=== PATIENT | male | born 1950 | race Caucasian/White ===

== ENCOUNTER 2017-06-08 08:20 | Emergency (ER) | payer MEDICAID, MEDICARE, OTHER ==
[2017-06-08 08:38] VITALS: BMI 34.4
[2017-06-08] MEDS ORDERED: Morphine 5 MG/ML SYRINGE IM STA (08:38)
--- NOTE | 2017-06-08 08:54 | ED PDOC ---
Arrival/HPI - General Chief Complaint: Trauma Time Seen by Provider: 06/08/17 08:38 Historian: Patient - History of Present Illness Narrative History of Present Illness (Text): 06/08/17 08:51 A 67 year old male, whose past medical history includes diabetes, neuropathy, CAD, CABG, and hypothyroidism, presents to the emergency department with a complaint of right arm pain s/p a mechanical fall. The patient states that he tripped and fell at home. He reports questionable LOC and right elbow pain. The patient denies fevers, chills, confusion, dizziness, chest pain, shortness of breath, dyspnea on exertion, cough, abdominal pain, nausea, vomiting, diarrhea, back pain, neck pain, urinary/bowel changes, or any other complaint. PMD: Dr. Chiki Torres Time/Duration: Prior to Arrival Symptom Onset: Sudden Symptom Course: Unchanged Activities at Onset: Rest, Light Context: Home Past Medical History - Provider Review Nursing Documentation Reviewed: Yes - Infectious Disease Hx of Infectious Diseases: None - Cardiac Hx Hypertension: Yes Other/Comment: Bypass - Neurological Other/Comment: Neuropathy - Endocrine/Metabolic Hx Diabetes Mellitus Type 1: Yes Hx Hypothyroidism: Yes - Psychiatric Hx Substance Use: No - Surgical History Other/Comment: Bypass surgery. Sinus surgery. Unkown name lower left quad surgery per patient. Family/Social History - Physician Review Nursing Documentation Reviewed: Yes Family/Social History: No Known Family HX Smoking Status: Never Smoked Hx Alcohol Use: No Hx Substance Use: No Allergies/Home Meds Allergies/Adverse Reactions: Allergies No Known Allergies Allergy (Verified 06/08/17 08:30) Review of Systems - Physician Review All systems were reviewed & negative as marked: Yes - Review of Systems Cardiovascular: absent: Chest Pain Neurological: absent: Dizziness Physical Exam - Physical Exam Narrative Physical Exam (Text): 06/08/17 08:54 Constitutional: No acute distress. Head: Normocephalic. Mild abrasion to right eyebrow. Eyes: PERRL. EOMI. ENT: Moist mucous membranes. Neck: Supple. No midline tenderness. Cardiovascular: Regular rate. Chest: No tenderness. Respiratory: Clear to auscultation bilaterally. GI: Soft. Nontender. Nondistended. Pelvis: Stable. Back: No CVA tenderness. No midline tenderness. Musculoskeletal: No tenderness or swelling of extremities x 3. Radial pulses 2 + bilaterally. Full ROM x3. Full ROM R wrist. No R snuffbox tenderness. Limited ROM of R elbow secondary to pain. Skin: No rash. Neurologic: Alert, no focal deficit. Vital Signs Reviewed: Yes Vital Signs Temp Pulse Resp BP Pulse Ox 06/08/17 13:54 98.4 F 61 18 150/76 97 06/08/17 09:52 59 L 16 133/63 97 06/08/17 08:20 97.2 F L 66 18 169/84 H 98 Pulse: Regular Respiratory Rate: Normal Appearance: Positive for: Well-Appearing, Non-Toxic Pain Distress: Moderate Mental Status: Positive for: Alert and Oriented X 3 Medical Decision Making ED Course and Treatment: 06/08/17 08:57 Impression: A 67 year old male presents to the emergency department with right elbow pain s/ p a fall prior to arrival. Plan: -- Rigth Elbow/ Humerus -- Morphine -- Reassess and disposition Progress Notes: CT HEAD WITHOUT CONTRAST Dictator : Prabhjot Kapadia MD Report Date : 06/08/2017 09:19:31 IMPRESSION: Normal CT of the Head. XR shows elbow fracture, displaced likely medial epicondyle, no dislocation of elbow joint. Patient with Medicare card, states he used to see Dr. Torres in the past and plans to see him in future. Called Dr. Torres who recommends Dr. Stevenson for Ortho. Discussed XR with Dr. Stevenson, who states that if surgery is needed , will not be performed today. Given no dislocation, recommends splint and follow up in office. Splint placed, sling, follow up Ortho. Patient with sensation and movement intact in hand and skin warm and cap refill normal. Instructed to return for numbness, weakness, or skin changes. - RAD Interpretation Radiology Orders: 06/08/17 08:39 HEAD W/O CONTRAST [CT] Stat ELBOW RIGHT 3 VIEWS ROUTINE [RAD] Stat HUMERUS RIGHT [RAD] Stat - Medication Orders Current Medication Orders: Discontinued Medications Morphine Sulfate (Morphine) 6 mg IM STAT STA Stop: 06/08/17 08:39 Last Admin: 06/08/17 08:55 Dose: 6 mg IM Administration Charges Document 06/08/17 08:55 RG (Rec: 06/08/17 08:55 RG [facility] [id number]) Injection Site MAR Injection Site Left Deltoid Charges for Administration # of IM Administrations 2 - Scribe Statement The provider has reviewed the documentation as recorded by the Nichol Handy Provider Nichol Attestation: All medical record entries made by the Scribe were at my direction and personally dictated by me. I have reviewed the chart and agree that the record accurately reflects my personal performance of the history, physical exam, medical decision making, and the department course for this patient. I have also personally directed, reviewed, and agree with the discharge instructions and disposition. Disposition/Present on Arrival - Present on Arrival Any Indicators Present on Arrival: No History of DVT/PE: No History of Uncontrolled Diabetes: No Urinary Catheter: No History of Decub. Ulcer: No History Surgical Site Infection Following: None - Disposition Have Diagnosis and Disposition been Completed?: Yes Diagnosis: Elbow fracture Disposition: HOME/ ROUTINE Disposition Time: 13:35 Patient Plan: Discharge Condition: STABLE Discharge Instructions (ExitCare): Elbow Fracture in Adults (ED) Prescriptions: oxyCODONE/Acetaminophen [Percocet 5/325 mg Tab] 1 tab PO Q6 #12 tab Referrals: Emir Torres MD [Primary Care Provider] - Follow up with primary Han Botello MD [Staff Provider] - Follow up with primary Forms: [employer] ([place])
--- NOTE | 2017-06-08 09:21 | CT ---
PROCEDURE: CT HEAD WITHOUT CONTRAST. HISTORY: fall COMPARISON: None available. TECHNIQUE: Axial computed tomography images were obtained through the head/brain without intravenous contrast. Radiation dose: Total exam DLP = 792 mGy-cm. This CT exam was performed using one or more of the following dose reduction techniques: Automated exposure control, adjustment of the mA and/or kV according to patient size, and/or use of iterative reconstruction technique. FINDINGS: HEMORRHAGE: No intracranial hemorrhage. BRAIN: No mass effect or edema. No atrophy or chronic microvascular ischemic changes. VENTRICLES: Unremarkable. No hydrocephalus. CALVARIUM: Unremarkable. PARANASAL SINUSES: Unremarkable as visualized. No significant inflammatory changes. MASTOID AIR CELLS: Unremarkable as visualized. No inflammatory changes. OTHER FINDINGS: None. IMPRESSION: Normal CT of the Head.
[2017-06-08 09:53] VITALS: O2SAT 97
--- NOTE | 2017-06-08 11:07 | RAD ---
PROCEDURE: Radiographs of the right humerus. HISTORY: fall COMPARISON: None. FINDINGS: BONES: Normal. No fracture or focal lesion. SOFT TISSUES: Normal. OTHER FINDINGS: None. IMPRESSION: Normal radiographs of right humerus.
--- NOTE | 2017-06-08 11:11 | RAD ---
PROCEDURE: Radiographs of the right elbow. HISTORY: fall COMPARISON: No prior. FINDINGS: BONES: There is a displaced bony fragment on the medial side of the elbow measuring 20 x 25 mm. The origin is most likely the medial epicondyle JOINTS: Normal. No osteoarthritis. SOFT TISSUES: Normal. JOINT EFFUSION: None. OTHER FINDINGS: None. IMPRESSION: There is a displaced bony fragment on the medial side of the elbow measuring 20 x 25 mm. The origin is most likely the medial epicondyle
[2017-06-08 14:01] VITALS: BP 150/76; PULSE 61; RESP 18; TEMP 98.4
== END 2017-06-08 14:02 | disposition home or self-care (01) ==
LOC: ED 08:20
DX: S42.401A Unspecified fracture of lower end of right humerus, initial encounter for closed fracture (principal); W01.0XXA Fall on same level from slipping, tripping and stumbling without subsequent striking against object, initial encounter; Y92.009 Unspecified place in unspecified non-institutional (private) residence as the place of occurrence of the external cause
CPT/HCPCS: 70450; 73060; 73080; 96372; 99283; J2270